=== PATIENT | male | born 1955 | race Caucasian/White ===

== ENCOUNTER → 2016-11-25 | Outpatient (CLI) | payer BC | END | disposition home or self-care (01) | LOC: WOUND 10:00 | PROVIDERS: ATTEND Internal Medicine | DX: I87.332 Chronic venous hypertension (idiopathic) with ulcer and inflammation of left lower extremity (principal); L97.222 Non-pressure chronic ulcer of left calf with fat layer exposed; K21.9 Gastro-esophageal reflux disease without esophagitis; E78.5 Hyperlipidemia, unspecified; E66.9 Obesity, unspecified; Z85.828 Personal history of other malignant neoplasm of skin; Z85.819 Personal history of malignant neoplasm of unspecified site of lip, oral cavity, and pharynx; Z87.891 Personal history of nicotine dependence | CPT/HCPCS: 15271; Q4101 ==

== ENCOUNTER → 2016-12-09 | Outpatient (CLI) | payer BC | END | disposition home or self-care (01) | LOC: WOUND 10:18 | PROVIDERS: ATTEND Internal Medicine | DX: I87.333 Chronic venous hypertension (idiopathic) with ulcer and inflammation of bilateral lower extremity (principal); L97.212 Non-pressure chronic ulcer of right calf with fat layer exposed; L97.221 Non-pressure chronic ulcer of left calf limited to breakdown of skin; Z85.22 Personal history of malignant neoplasm of nasal cavities, middle ear, and accessory sinuses; E78.5 Hyperlipidemia, unspecified; E66.9 Obesity, unspecified; Z87.891 Personal history of nicotine dependence | CPT/HCPCS: 99213 ==

== ENCOUNTER → 2017-01-06 | Outpatient (CLI) | payer BC | END | disposition home or self-care (01) | LOC: WOUND 10:00 | PROVIDERS: ATTEND Internal Medicine | DX: I87.332 Chronic venous hypertension (idiopathic) with ulcer and inflammation of left lower extremity (principal); L97.222 Non-pressure chronic ulcer of left calf with fat layer exposed; E78.5 Hyperlipidemia, unspecified; K21.9 Gastro-esophageal reflux disease without esophagitis; E66.9 Obesity, unspecified; Z68.32 Body mass index [BMI] 32.0-32.9, adult; Z87.891 Personal history of nicotine dependence | CPT/HCPCS: 11042 ==

== ENCOUNTER → 2017-01-13 | Outpatient (CLI) | payer BC | END | disposition home or self-care (01) | LOC: WOUND 11:06 | PROVIDERS: ATTEND Internal Medicine | DX: I87.333 Chronic venous hypertension (idiopathic) with ulcer and inflammation of bilateral lower extremity (principal); L97.212 Non-pressure chronic ulcer of right calf with fat layer exposed; L97.821 Non-pressure chronic ulcer of other part of left lower leg limited to breakdown of skin; E78.5 Hyperlipidemia, unspecified; K21.9 Gastro-esophageal reflux disease without esophagitis; E66.9 Obesity, unspecified; Z68.32 Body mass index [BMI] 32.0-32.9, adult; Z85.22 Personal history of malignant neoplasm of nasal cavities, middle ear, and accessory sinuses; Z85.828 Personal history of other malignant neoplasm of skin; Z87.891 Personal history of nicotine dependence | CPT/HCPCS: 17250 ==

== ENCOUNTER → 2017-01-27 | Outpatient (CLI) | payer BC | END | disposition home or self-care (01) | LOC: WOUND 10:10 | PROVIDERS: ATTEND Internal Medicine | DX: I87.333 Chronic venous hypertension (idiopathic) with ulcer and inflammation of bilateral lower extremity (principal); L97.212 Non-pressure chronic ulcer of right calf with fat layer exposed; L97.821 Non-pressure chronic ulcer of other part of left lower leg limited to breakdown of skin; E78.5 Hyperlipidemia, unspecified; E66.9 Obesity, unspecified; Z68.32 Body mass index [BMI] 32.0-32.9, adult; K21.9 Gastro-esophageal reflux disease without esophagitis; Z85.22 Personal history of malignant neoplasm of nasal cavities, middle ear, and accessory sinuses; Z85.828 Personal history of other malignant neoplasm of skin; Z87.891 Personal history of nicotine dependence | CPT/HCPCS: 97597 ==

== ENCOUNTER → 2017-02-17 | Outpatient (CLI) | payer BC | END | disposition home or self-care (01) | LOC: WOUND 10:00 | PROVIDERS: ATTEND Internal Medicine | DX: I87.332 Chronic venous hypertension (idiopathic) with ulcer and inflammation of left lower extremity (principal); L97.222 Non-pressure chronic ulcer of left calf with fat layer exposed; K21.9 Gastro-esophageal reflux disease without esophagitis; E78.5 Hyperlipidemia, unspecified; E66.01 Morbid (severe) obesity due to excess calories; E66.9 Obesity, unspecified; Z68.32 Body mass index [BMI] 32.0-32.9, adult; Z87.891 Personal history of nicotine dependence; Z85.828 Personal history of other malignant neoplasm of skin; Z85.22 Personal history of malignant neoplasm of nasal cavities, middle ear, and accessory sinuses | CPT/HCPCS: 97597 ==

== ENCOUNTER → 2017-02-24 | Outpatient (CLI) | payer BC | END | disposition home or self-care (01) | LOC: WOUND 10:00 | PROVIDERS: ATTEND Internal Medicine | DX: I87.331 Chronic venous hypertension (idiopathic) with ulcer and inflammation of right lower extremity (principal); L97.212 Non-pressure chronic ulcer of right calf with fat layer exposed; Z85.22 Personal history of malignant neoplasm of nasal cavities, middle ear, and accessory sinuses; E78.5 Hyperlipidemia, unspecified; E66.9 Obesity, unspecified; Z87.891 Personal history of nicotine dependence | CPT/HCPCS: 17250 ==